=== PATIENT | female | born 1975 | race Caucasian/White ===

== ENCOUNTER 2016-05-29 16:25 | Emergency (ER) | payer SELFPAY ==
--- NOTE | 2016-06-06 08:11 | ER ---
ADMIT: 05/29/2016 RM/LOC: ER [facility] MR#: [id number] [address] [id number] GLENN MOHAN [address] [facility] [place] [address] Emergency Room Report SEX: F AGE: 40 : 1975 DATE: 05/29/2016 HISTORY OF PRESENT ILLNESS: A 40-year-old female comes to the Emergency Department with a tender swollen area in the left episcopal region of her head. She said that it appeared as a pimple last night and spontaneously opened and drained while she was taking a shower. Comes to the Emergency Department today because she says it continues to be tender and warm. See T-sheet for history and physical. DIAGNOSIS: Partially drained abscess. It is firm at this point. There is no point in I and D'ing it. She was given a prescription for Bactrim, Keflex, and Ultram. Instructed to use warm moist heat to the area and allow to drain. Follow up this coming week with her doctor. Jc Pollard MD/ magno JOB #: [id number] CC: Jc Pollard MD, Attending Physician Fadumo Rivera MD, Family Physician
== END 2016-05-29 17:08 | disposition home or self-care (01) ==
LOC: ER 16:25
DX: L02.01 Cutaneous abscess of face (principal); F17.210 Nicotine dependence, cigarettes, uncomplicated; Z88.0 Allergy status to penicillin; Z91.040 Latex allergy status; Z88.5 Allergy status to narcotic agent; Z98.890 Other specified postprocedural states